=== PATIENT | male | born 1935 | race Caucasian/White ===

== ENCOUNTER → 2018-10-12 | Outpatient (CLI) | payer BC ==
--- NOTE | ~2018-10-12 | CON ---
[address] [address] CONSULTATION Name: ANTWON EDWARD Room: [facility]#: [id number] Admission: 10/12/18 Attend Phys: Donell Burgos MD Discharge: Date of : 37 Report #: [id number] THIS REPORT FOR: //name// CC: Joanna Burgos DATE OF SERVICE: 10/12/2018 REFERRING PHYSICIANS: Include Dr. Gomez and Dr. Piña. PRIMARY SITE AND HISTOPATHOLOGY: The patient has findings consistent with a squamous cell carcinoma of the skin. He has multiple lesions on the left forearm and possibly even arm. 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 The duration he had them is uncertain. He had biopsies of 6 areas. 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 He presents for consideration for radiation therapy. PAST MEDICAL HISTORY AND PAST SURGICAL HISTORY: He had cataracts removed. Around 2004, he had a gastric bypass and generally around 1975, he has a history of asthma. He also underwent a definitive radiation therapy for prostate cancer that was completed on 09/02/2010. MEDICATIONS: Include Lasix, , potassium supplements, simvastatin, Icaps, 81 mg aspirin. ALLERGIES: TO PENICILLIN. FAMILY HISTORY: Maternal grandfather had colon cancer. SOCIAL HISTORY: The patient is retired from [employer]. He is . He has 1 daughter. Ethanol, he does not drink alcohol containing drinks. Cigarettes, he smoked about 3/4 packs a day for approximately 35 years. He quit smoking around 2011. REVIEW OF SYSTEMS: GENERAL: He has had mild weight loss over the past few years. SKIN: He has lesions on the left upper extremity. LYMPH NODES: He denied having any enlarged or painful glands in the neck. ENDOCRINE: He denied having any hot or cold intolerance. HEMATOLOGY AND IMMUNOLOGY: He denied having any anemia or recent bleeding. MUSCULOSKELETAL: He denied having any arthritis. HEAD AND NECK: The patient does have tinnitus. RESPIRATORY: He [place] [address] CONSULTATION Name: ANTWON EDWARD Room: [facility]#: [id number] Admission: 10/12/18 Attend Phys: Donell Burgos MD Discharge: Date of : 37 Report #: [id number] CARDIOVASCULAR: He is on medication for atrial fibrillation. GASTROINTESTINAL: In the past, he has had issues with diarrhea, which could be due to some colitis causing some cramping abdominal pain rarely. NEUROLOGIC: He denied having any focal weakness. PHYSICAL EXAMINATION: VITAL SIGNS: Height was 5 feet 9 inches, weight 165 pounds, blood pressure 123/42, pulse 56, respirations 20, oxygen saturation 96%. No nausea. GENERAL AND PSYCHIATRIC: He is alert, oriented, in no acute distress. LYMPH NODES: No cervical or supraclavicular lymphadenopathy. EYES: Pupils were equal, round react to light and accommodation. Extraocular movements intact. MOUTH: Had no visible lesions. HEART: Had a regular rate and rhythm without murmur. LUNGS: Clear to auscultation. ABDOMEN: Not tender, spleen was not palpable. Liver was at the costal margin. EXTREMITIES: Had no clubbing, cyanosis or edema. ASSESSMENT AND PLAN: The patient did have visible lesions on the left forearm and maybe even possibly arm. The largest lesion was about 5 x 5 x 2 cm near the antecubital fossa laterally on the left forearm. Then, he had multiple satellite lesions. There were about 3 of them that were 1 x 1 cm, another one was 2 x 1 cm, another one was 0.5 x 0.5 cm and another one was 2 x 2 cm, another one was 1.3 x 1.3 cm, another one was 1 x 1 cm and maybe one on the arm that is 2 x 2 cm. ASSESSMENT AND PLAN: The patient has skin cancer involving the left upper extremity. The patient realizes that his options include resection versus definitive radiation therapy. The efficacy of definitive radiation therapy can be found in the study where Dr. Mcdonald was one of the authors that was entitled Radiotherapy For Epithelial Skin Cancer published in the International Journal of Radiation Oncology Biology Physics in 2000. The overall tumor control rate for all skin cancers was about 89% and the control rate for the patient with squamous cell carcinoma was 80%. So the risks, benefits and logistics of radiation therapy to that arm were discussed with the patient in detail. The patient gave his witnessed informed consent to proceed with radiation therapy. Thank you for this consult. By: [id number] Burgos MD /og
== END ==
LOC: M.RTH 04:59
DX: C44.92 Squamous cell carcinoma of skin, unspecified (principal)